=== PATIENT | male | born 1945 | race Caucasian/White ===

== ENCOUNTER 2018-11-17 12:34 | Inpatient (IN) | payer MEDICARE ==
[~2018-11-17] VITALS: Ht 172.7 cm; Wt 81.6 kg
[2018-11-19 07:40] VITALS: BP 159/67
== END 2018-11-19 12:35 | disposition home or self-care (01) | DRG 313 ==
LOC: ED 13:41 → EDIP 13:42 → ED 13:51 → 5SO 15:36
PROVIDERS: ADMIT Internal Medicine; ATTEND Internal Medicine
DX: R07.89 Other chest pain (principal); I47.2 Ventricular tachycardia; I50.32 Chronic diastolic (congestive) heart failure; D68.69 Other thrombophilia; I48.0 Paroxysmal atrial fibrillation; Z91.048 Other nonmedicinal substance allergy status; E78.5 Hyperlipidemia, unspecified; E83.42 Hypomagnesemia; E83.51 Hypocalcemia; I11.0 Hypertensive heart disease with heart failure; I25.2 Old myocardial infarction; Z79.82 Long term (current) use of aspirin; Z79.899 Other long term (current) drug therapy; Z66 Do not resuscitate; I35.8 Other nonrheumatic aortic valve disorders; I95.1 Orthostatic hypotension; Z79.01 Long term (current) use of anticoagulants; Z82.3 Family history of stroke; Z87.891 Personal history of nicotine dependence; Z95.1 Presence of aortocoronary bypass graft; Z95.3 Presence of xenogenic heart valve
CPT/HCPCS: 36415; 71045; 78452; 80048; 80053; 82330; 82607; 83735; 84100; 84443; 84484; 85025; 93005; 93017; 93306; G0378; J2785; A9502; C9898; J3475